=== PATIENT | female | born 1935 | race African-American/Black ===

== ENCOUNTER 2021-07-15 18:31 | Inpatient (IN) | payer BC ==
[~2021-07-15] VITALS: Ht 175.3 cm; Wt 81.6 kg
[~2021-07-15 18:31] MED LIST: METO-411 PO; VALS1TAB79 PO; VYT1020 PO
[2021-07-15] MEDS ORDERED: IOHEXOL-350 100 ML BOTTLE ONE (19:13)
[2021-07-15 19:21] LABS: BASOPHILS % 0.5 % (0.0-2.0); EOSINOPHILS % 0.3 % (0.0-5.0); HEMATOCRIT. 36.9 % (36.0-48.0); HEMOGLOBIN. 12.3 g/dL (12.0-16.0); LYMPHOCYTES % 34.8 % (20.0-50.0); MEAN CORPUSCULAR HEMOGLOBIN 31.7 pg (28.0-32.0); MEAN CORPUSCULAR VOLUME 94.9 fL (81.0-99.0); MONOCYTES % 7.2 % (2.0-8.0); NEUTROPHILS % 57.2 % (40.0-76.0); PLATELET 188 x1000/uL (130-400); RED BLOOD CELL COUNT 3.88 mill/uL (4.2-5.4); RED CELL DISTRIBUTION WIDTH 13.4 % (11.6-14.6)
[2021-07-15 19:32] LABS: CHLORIDE 100 mEq/L (98-107)
[2021-07-15 19:36] LABS: ETHANOL BLOOD < 10 mg/dL
[2021-07-15 19:59] LABS: CLARITY URINE CLEAR (CLEAR); COLOR URINE YELLOW (YELLOW); KETONES URINE NEGATIVE (NEGATIVE); LEUKOCYTE ESTERASE URINE NEGATIVE (NEGATIVE); NITRITE URINE NEGATIVE (NEGATIVE); OCCULT BLOOD URINE NEGATIVE (NEGATIVE); PH URINE 8.5 (4.5-8.0); PROTEIN URINE NEGATIVE (NEGATIVE); SPECIFIC GRAVITY URINE 1.015 (1.005-1.030); UROBILINOGEN URINE 0.2 E.U./dL (0.2-1.0)
[2021-07-15] MEDS ORDERED: ALTEPLASE IV NR (20:15)
[2021-07-15] MEDS ORDERED: ALTEPLASE 100MG/VIAL IV NR (20:15)
[2021-07-15 20:18] LABS: *AMPHETAMINES SCREEN URINE NEGATIVE (NEGATIVE); *BARBITURATES SCREEN URINE NEGATIVE (NEGATIVE); *BENZODIAZEPINES SCREEN URINE NEGATIVE (NEGATIVE); *COCAINE SCREEN URINE NEGATIVE (NEGATIVE); CANNABINOID URINE SCREEN NEGATIVE (NEGATIVE); PHENCYCLIDINE URINE SCREEN NEGATIVE (NEGATIVE)
[2021-07-15 20:19] LABS: METHADONE URINE SCREEN NEGATIVE (NEGATIVE); OPIATES URINE SCREEN NEGATIVE (NEGATIVE)
[2021-07-15] MEDS ORDERED: *NO ASPIRIN X 24 HOURS XX SCH (20:30)
[2021-07-15] MEDS ORDERED: LABETALOL HCL 20MG/4ML CARPUJECT IV ONE ×2 (20:45→21:30)
[2021-07-15] MEDS ORDERED: LABETALOL 5MG/ML SYR 20 MG/4 ML SYRINGE IV NR ×2 (21:00→21:45)
[2021-07-16] VITALS (55 sets, daily range): BP systolic 93–209; BP diastolic 37–130
[2021-07-16] MEDS ORDERED: LABETALOL 5MG/ML SYR 20 MG/4 ML SYRINGE IV PRN (02:45)
[2021-07-16] MEDS ORDERED: NICARDIPINE 50 MG in SODIUM CHLORIDE 0.9% 230 ML IV PRN (02:45)
[2021-07-16 05:52] LABS: HEMATOCRIT 36.6 % (36.0-48.0); MEAN CORPUSCULAR HEMOGLOBIN 31.5 pg (28.0-32.0); MEAN CORPUSCULAR VOLUME 96.3 fL (81.0-99.0); PLATELET 183 x1000/uL (130-400); RED CELL DISTRIBUTION WIDTH 13.5 % (11.6-14.6)
[2021-07-16 06:20] LABS: CHLORIDE 101 mEq/L (98-107)
[2021-07-16 06:40] LABS: LDL CHOLESTEROL 64 mg/dL (5-100)
[2021-07-16 06:42] LABS: HDL CHOLESTEROL 85 mg/dL (40-59)
[2021-07-16] MEDS ORDERED: IPRATROPIUM/ALBUTEROL 0.5-3(2.5)MG/3ML NEB HHN PRN (09:30)
[2021-07-16] MEDS ORDERED: ONDANSETRON HCL 4MG/2ML INJ IV PRN (09:30)
[2021-07-16] MEDS ORDERED: DOCUSATE SODIUM 100MG CAPSULE PO PRN (09:30)
[2021-07-16] MEDS ORDERED: HYDROCODONE/ACETAMINOPHEN 5/325MG TABLET PO PRN (09:30)
[2021-07-16] MEDS ORDERED: LORAZEPAM 0.5MG TABLET PO PRN (09:30)
[2021-07-16] MEDS ORDERED: ACETAMINOPHEN 325MG TABLET PO PRN ×2 (09:30)
[2021-07-16] MEDS ORDERED: NALOXONE HCL 0.4MG/ML VIAL IV PRN (10:00)
[2021-07-16 13:52] LABS: CREATINE KINASE MB FRACTION 2.2 ng/mL (0.5-3.6)
[2021-07-16] MEDS: CLONIDINE 0.1MG TABLET PO PRN ×2 (17:35→20:56)
[2021-07-17] VITALS (12 sets, daily range): BP systolic 117–174; BP diastolic 38–85
[2021-07-17] MEDS ORDERED: METOPROLOL SUCCINATE 50MG ER TABLET PO SCH (10:15)
[2021-07-17] MEDS: METOPROLOL TARTRATE 50MG TABLET PO SCH ×2 (11:15→20:50)
[2021-07-17] MEDS: CLONIDINE 0.1MG TABLET PO PRN (18:07)
[2021-07-18] VITALS (12 sets, daily range): BP systolic 135–152; BP diastolic 52–86
[2021-07-18 06:32] LABS: BASOPHILS % 0.5 % (0.0-2.0); EOSINOPHILS % 1.4 % (0.0-5.0); HEMATOCRIT. 35.8 % (36.0-48.0); HEMOGLOBIN. 12.1 g/dL (12.0-16.0); LYMPHOCYTES % 33.6 % (20.0-50.0); MEAN CORPUSCULAR HEMOGLOBIN 32.5 pg (28.0-32.0); MEAN CORPUSCULAR VOLUME 96.4 fL (81.0-99.0); MEAN PLATELET VOLUME 8.7 fl (7.4-10.4); MONOCYTES % 8.6 % (2.0-8.0); NEUTROPHILS % 55.9 % (40.0-76.0); PLATELET 165 x1000/uL (130-400); RED BLOOD CELL COUNT 3.71 mill/uL (4.2-5.4); RED CELL DISTRIBUTION WIDTH 13.3 % (11.6-14.6)
[2021-07-18 06:43] LABS: CHLORIDE 103 mEq/L (98-107)
[2021-07-18] MEDS: METOPROLOL TARTRATE 50MG TABLET PO SCH (08:26)
[2021-07-18] MEDS ORDERED: ASPIRIN 81MG EC TABLET PO SCH (09:00)
[2021-07-18] MEDS ORDERED: ASPI-1406 PO (15:23)
== END 2021-07-18 22:51 | disposition home health service (06) | DRG 304 ==
LOC: ER 18:31 → EDBEDREQTM 22:44 → EDBEDREQ 22:44 → EDBEDREQSVC 22:44 → EDBEDREQTM 22:59 → EDBEDREQSVC 22:59 → ENRESERV 23:00 → CANRESERV 23:00 → MICUNO 07-16 00:29 → 5EST 07-16 22:55
PROVIDERS: ADMIT Internal Medicine; ATTEND Internal Medicine
PROC: 4A10X4Z Monitoring of Central Nervous Electrical Activity, External Approach (ICD-10-PCS; principal; 2021-07-17)
DX: I16.1 Hypertensive emergency (principal); G92.8 Other toxic encephalopathy; E78.5 Hyperlipidemia, unspecified; I11.0 Hypertensive heart disease with heart failure; I50.9 Heart failure, unspecified; R47.1 Dysarthria and anarthria; R00.1 Bradycardia, unspecified; Z86.73 Personal history of transient ischemic attack (TIA), and cerebral infarction without residual deficits; Z90.710 Acquired absence of both cervix and uterus; R77.8 Other specified abnormalities of plasma proteins
CPT/HCPCS: 36415; 70496; 70498; 70551; 71045; 80048; 80053; 80061; 80305; 80307; 80320; 80329; 81003; 82550; 82553; 82962; 83036; 83735; 83880; 84443; 84484; 85025; 85027; 92610; 93005; 93306; 95816; 97162; 97166; 97530; 99291; A6261; J2997; J3490; Q9967; G0480